=== PATIENT | male | born 1955 | race African-American/Black ===

== ENCOUNTER 2018-08-26 00:18 | Emergency (ER) | payer MEDICAID ==
[~2018-08-26] VITALS: Ht 170.2 cm; Wt 66.8 kg
[~2018-08-26 00:18] MED LIST: ADV250 IH; ALBU6.7H IH
[2018-08-26] MEDS ORDERED: KETOROLAC TROMETHAMINE 60 MG/2 ML VIAL IM ONE (01:45)
[2018-08-26] MEDS ORDERED: PENICILLIN V POTASSIUM 500 MG TABLET PO ONE (01:45)
[2018-08-26 02:01] VITALS: BP 148/90
== END 2018-08-26 02:03 | disposition home or self-care (01) ==
LOC: EMS 00:26
DX: K08.89 Other specified disorders of teeth and supporting structures (principal); R51 Headache; J44.9 Chronic obstructive pulmonary disease, unspecified; F17.210 Nicotine dependence, cigarettes, uncomplicated; F11.90 Opioid use, unspecified, uncomplicated; F10.20 Alcohol dependence, uncomplicated; F41.9 Anxiety disorder, unspecified; F15.90 Other stimulant use, unspecified, uncomplicated; F22 Delusional disorders; Z91.013 Allergy to seafood; Z79.899 Other long term (current) drug therapy
CPT/HCPCS: 96372; 99283; J1885